=== PATIENT | female | born 1950 | race Caucasian/White ===

== ENCOUNTER 2021-11-15 11:25 | Outpatient (CLI) | payer MEDICARE | END 2021-11-15 11:26 | disposition home or self-care (01) | LOC: MADRAD 11:25 | PROVIDERS: ATTEND Family Medicine | DX: S89.91XA Unspecified injury of right lower leg, initial encounter (principal); M79.89 Other specified soft tissue disorders; S72.401A Unspecified fracture of lower end of right femur, initial encounter for closed fracture | CPT/HCPCS: 36415; 85379 ==